=== PATIENT | male | born 1985 | race Caucasian/White ===

== ENCOUNTER 2018-04-13 16:11 | Emergency (ER) | payer MEDICAID ==
[2018-04-13] MEDS: LIDOCAINE 1% (MDV) 10 ML INJ INFIL (17:44)
[2018-04-13] MEDS: HYDROCODONE/APAP (10/325) TAB PO (17:45)
[2018-04-13] MEDS: DIPHTH/TET/ACEL PERTUSS (ADULT) 0.5 ML VIAL IM* (17:45)
[2018-04-13] MEDS: LIDOCAINE 1% (MPF) 5 ML VIAL INJ (18:25)
[2018-04-13] MEDS: BACITRACIN 0.9 GM OINT TOP (20:10)
== END 2018-04-13 20:10 | disposition home or self-care (01) ==
LOC: FTE 16:11
DX: S61.411A Laceration without foreign body of right hand, initial encounter (principal); W31.89XA Contact with other specified machinery, initial encounter; Y92.89 Other specified places as the place of occurrence of the external cause; Z23 Encounter for immunization
CPT/HCPCS: 12002; 73130-RT; 90471; 90715; 99283-25

== ENCOUNTER 2018-04-15 12:52 | Emergency (ER) | payer MEDICAID | END 2018-04-15 13:27 | disposition home or self-care (01) | LOC: FTE 12:52 | DX: Z48.01 Encounter for change or removal of surgical wound dressing (principal) | CPT/HCPCS: 99281 ==

== ENCOUNTER 2018-04-24 12:55 | Emergency (ER) | payer MEDICAID | END 2018-04-24 14:27 | disposition home or self-care (01) | LOC: FTE 12:55 | DX: Z48.02 Encounter for removal of sutures (principal) | CPT/HCPCS: 99281; Z7502 ==